=== PATIENT | female | born 1945 | race Caucasian/White ===

== ENCOUNTER 2021-08-01 13:38 | Emergency (ER) | payer MEDICARE ==
[~2021-08-01] VITALS: Ht 152.4 cm; Wt 77.3 kg
[2021-08-01] MEDS: ERYTHROMYCIN 0.5% 3.5 GM TUBE OPHTHALMIC OINTMENT OS ONE (17:11)
[2021-08-01 17:13] VITALS: BP 180/84
== END 2021-08-01 17:17 | disposition home or self-care (01) ==
LOC: EMS 13:49
DX: H00.015 Hordeolum externum left lower eyelid (principal); J45.909 Unspecified asthma, uncomplicated; Z88.0 Allergy status to penicillin
CPT/HCPCS: 99283

== ENCOUNTER 2024-10-21 09:19 | Emergency (ER) | payer MEDICARE ==
[~2024-10-21] VITALS: Ht 153 cm; Wt 75.0 kg
[2024-10-21] MEDS ORDERED: LEVO25TA9 PO (09:28)
[2024-10-21] MEDS ORDERED: CHOL400T56 PO (09:28)
[2024-10-21] MEDS ORDERED: OM3-1CAP PO (09:28)
[2024-10-21] MEDS ORDERED: ASCO500 PO (09:28)
[2024-10-21] MEDS ORDERED: LISI-892 PO (09:28)
[2024-10-21 09:31] VITALS: TEMP 97.8
[2024-10-21] MEDS ORDERED: TRI115O TP (10:14)
[2024-10-21 10:36] VITALS: BP 147/77; PULSE 97; RESP 18; O2SAT 100
== END 2024-10-21 10:48 | disposition home or self-care (01) ==
LOC: EMS 09:24
DX: L60.0 Ingrowing nail (principal); I10 Essential (primary) hypertension; Z79.899 Other long term (current) drug therapy; Z88.0 Allergy status to penicillin
CPT/HCPCS: 99283; Z7502